=== PATIENT | male | born 1990 | race Two or more races ===

== ENCOUNTER 2022-09-15 14:20 | Emergency (ER) | payer OTHER ==
[~2022-09-15] VITALS: Ht 182.9 cm; Wt 195.0 kg
[2022-09-15] MEDS ORDERED: ELIQUIS5 MG PO (14:33)
[2022-09-15] MEDS ORDERED: LEVO-T25 MCG PO (14:34)
[2022-09-15] MEDS ORDERED: SINGULAIR4 M1 PO (14:34)
[2022-09-15] MEDS ORDERED: METOPROLOL SUCC25 MG PO (14:34)
== END 2022-09-15 17:50 | disposition home or self-care (01) ==
LOC: ER 14:20
DX: S92.402A Displaced unspecified fracture of left great toe, initial encounter for closed fracture (principal); X58.XXXA Exposure to other specified factors, initial encounter; Y93.9 Activity, unspecified; Y92.9 Unspecified place or not applicable; Y99.9 Unspecified external cause status

== ENCOUNTER 2022-11-17 22:24 | Inpatient (IN) | payer OTHER ==
[~2022-11-17] VITALS: Ht 182.9 cm; Wt 399.6 kg
[~2022-11-17 22:24] MED LIST: ELIQUIS5 MG PO; LEVO-T25 MCG PO; METOPROLOL SUCC25 MG PO; SINGULAIR4 M1 PO
--- NOTE | 2022-11-17 22:31 | NUR ---
SE RECIBE PTE MASCULINO ALERTA Y ORIENTADO EN L[place] ARNA[place]O ESFERAS REFIERE CELULLITIS EN PIERNA R+ DESDE HACE DOS DALEY.
--- NOTE | 2022-11-17 23:25 | NUR ---
SE EDUCA A PTE SOBRE [place] MEDICO JOSY REFIERE ENTENDER. SE MOSUTAPHA MUESTRAS DE LABORATORIO UTILIZANDO MEDIDAS ASEPTICAS. SE COLOCA H/L A PTE Y SE ADMINISTRAN MEDICAMENTOS LOS CUALES TOLERA. SE NOTIFICA ESTUDIO DE DOPPLER PENDIENTE A REALIZAR.
[2022-11-18] MEDS ORDERED: METOPROLOL SUCC25 MG (13:27)
[2022-11-18] MEDS ORDERED: VALSARTAN-HCTZ1 EACH (13:27)
[2022-11-18] MEDS ORDERED: LEVOTHYROXINE75 MCG (13:27)
== END 2022-11-24 15:14 | disposition home or self-care (01) | DRG 603 ==
LOC: ER 22:24 → MEDI 11-18 00:25 → SURG 11-18 00:25
PROVIDERS: ADMIT Internal Medicine; ATTEND Internal Medicine
PROC: B54BZZZ Ultrasonography of Right Lower Extremity Veins (ICD-10-PCS; 2022-11-17)
PROC: B44FZZZ Ultrasonography of Right Lower Extremity Arteries (ICD-10-PCS; 2022-11-17)
PROC: BL41ZZZ Ultrasonography of Lower Extremity Connective Tissue (ICD-10-PCS; principal; 2022-11-20)
DX: L03.115 Cellulitis of right lower limb (principal); Z68.44 Body mass index [BMI] 60.0-69.9, adult; I83.013 Varicose veins of right lower extremity with ulcer of ankle; I87.2 Venous insufficiency (chronic) (peripheral); E66.01 Morbid (severe) obesity due to excess calories; I10 Essential (primary) hypertension; G47.33 Obstructive sleep apnea (adult) (pediatric); Z20.822 Contact with and (suspected) exposure to COVID-19

== ENCOUNTER 2023-02-16 19:12 | Emergency (ER) | payer OTHER ==
[~2023-02-16] VITALS: Ht 182.9 cm; Wt 188.2 kg
[~2023-02-16 19:12] MED LIST changes: +LEVOTHYROXINE75 MCG; +METOPROLOL SUCC25 MG; +VALSARTAN-HCTZ1 EACH
[2023-02-16] MEDS ORDERED: ALLOPURINOL300 MG PO (19:55)
== END 2023-02-17 00:44 | disposition home or self-care (01) ==
LOC: ER 19:12
DX: S49.81XA Other specified injuries of right shoulder and upper arm, initial encounter (principal); X58.XXXA Exposure to other specified factors, initial encounter; Y93.89 Activity, other specified; Y92.89 Other specified places as the place of occurrence of the external cause